=== PATIENT | male | born 1985 | race Caucasian/White ===

== ENCOUNTER 2022-01-04 22:35 | Emergency (ER) | payer SELFPAY ==
[2022-01-04 22:50] VITALS: BP 104/80; PULSE 58; RESP 16; TEMP 36.7; O2SAT 100
--- NOTE | 2022-01-05 00:13 | ED.GENADULT ---
HPI - General Adult General Chief complaint: Unspecified Stated complaint: food bolus Time Seen by Provider: 01/04/22 23:31 History of Present Illness HPI narrative: 36-year-old male here for evaluation of sensation fluid bolus for the past 5 hours. Patient states he was eating pot roast when he felt it get stuck in his throat. He has been unable to tolerate his secretions ever since and has been spitting them out. Does note that he has had a history of the sensation in the past, he has required an upper endoscopy. He has been told he has a narrow esophagus and may require dilatation. Denies difficulty breathing, chest pain, shortness of breath, vomiting. Related Data Home Medications Medication Instructions Recorded Confirmed No Home Medications 01/04/22 01/04/22 Allergies Allergy/AdvReac Type Severity Reaction Status Date / Time metaxalone [From Skelaxin] AdvReac Hallucinati Verified 01/04/22 22:55 ng Review of Systems Review of Systems: Gen: Denies fevers or chills Eyes: Denies eye pain or visual change ENT: Denies congestion Respiratory: Denies shortness of breath or cough CV: Denies chest pain or palpitations GI: Reports food bolus sensation. Denies abdominal pain nausea, emesis or diarrhea : denies burning, urgency, frequency or hematuria Musculoskeletal: Denies back pain or muscle pain Neuro: Denies numbness, tingling, weakness or focal weakness Skin: Denies rash Except as documented, all other systems reviewed and negative Exam Narrative: APPEARANCE: Well appearing, no pain in distress, well-nourished. Head: Normocephalic and atraumatic. EYES: PERRLA/EOMI, conjunctivae clear NOSE: No nasal drainage EARS: External ear normal in appearance THROAT: Actively spitting out secretions. Oropharynx is clear. Mucous membranes are moist. NECK: Supple. No adenopathy, no masses. RESPIRATORY: Airway patent, respirations nonlabored. Clear to auscultation bilaterally, no rales, rhonchi, wheezing. CARDIOVASCULAR: Regular rate and rhythm without murmurs, rubs, or gallops. ABDOMINAL: Normoactive bowel sounds. Soft, nontender, nondistended. No rebound tenderness or guarding. MUSCULOSKELETAL: Extremities are warm and well-perfused. Moves all extremities well. No edema. NEURO: Normal speech. No focal neurologic deficits. SKIN: Skin is warm and dry. No rashes. PSYCHIATRIC: Normal affect/mood. Course Vital Signs Vital signs: Vital Signs Temperature 98.1 F 01/04/22 22:50 Pulse Rate 58 L 01/04/22 22:50 Respiratory Rate 16 01/04/22 22:50 Blood Pressure 104/80 01/04/22 22:50 Pulse Oximetry 100 01/04/22 22:50 Oxygen Delivery Room Air 01/04/22 22:50 Temperature 98.1 F 01/04/22 22:50 Pulse Rate 58 L 01/04/22 22:50 Respiratory Rate 16 01/04/22 22:50 Blood Pressure 104/80 01/04/22 22:50 Pulse Oximetry 100 01/04/22 22:50 Oxygen Delivery Room Air 01/04/22 22:50 Medical Decision Making MDM Narrative Medical decision making narrative: 36-year-old male here for evaluation of food bolus sensation over the past 4 hours after eating pot roast. He is actively spitting out his secretions, but he has no signs of respiratory distress. Patient was given sprite with resolution of his symptoms and sensation of the food bolus passing. He has been told that he requires an esophageal dilatation in the past, he does not have a GI doctor, so we will provide him with follow-up. Discussed return precautions with patient and he voiced understanding. Vital Signs Vital Signs: Vital Signs Temperature 98.1 F 01/04/22 22:50 Pulse Rate 58 L 01/04/22 22:50 Respiratory Rate 16 01/04/22 22:50 Blood Pressure 104/80 01/04/22 22:50 Pulse Oximetry 100 01/04/22 22:50 Oxygen Delivery Room Air 01/04/22 22:50 Temperature 98.1 F 01/04/22 22:50 Pulse Rate 58 L 01/04/22 22:50 Respiratory Rate 16 01/04/22 22:50 Blood Pressure 104/80 01/04/22 22:50 Pulse Oximetry 100 07
== END 2022-01-05 00:34 | disposition home or self-care (01) ==
PROVIDERS: Emergency Provider Emergency Medicine
DX: T18.128A Food in esophagus causing other injury, initial encounter (principal)
CPT/HCPCS: 99281

== ENCOUNTER 2023-07-26 18:43 | Emergency (ER) | payer OTHER, SELFPAY ==
[2023-07-26 18:55] VITALS: BP 119/68; PULSE 96; RESP 18; TEMP 36.8; O2SAT 96
--- NOTE | 2023-07-26 19:23 | ED.URI ---
HPI - URI/Sore Throat General Chief Complaint: Upper Respiratory Infection Stated Complaint: cough,throat pain Time Seen by Provider: 07/26/23 19:04 Source: patient and RN notes reviewed Mode of arrival: ambulatory Limitations: no limitations History of Present Illness HPI Narrative: Patient presents today complaining a 2 day history productive cough, sore throat, congestion, rhinorrhea. Symptoms worse since yesterday. Denies fever, shortness of breath. Currently rates his pain 6/10 and has been taking Tylenol with some relief. Related Data Allergies Allergy/AdvReac Type Severity Reaction Status Date / Time metaxalone [From Skelaxin] AdvReac Hallucinati Verified 07/26/23 19:12 ng Review of Systems Review of Systems: CONSTITUTIONAL: Denies body aches, fever, chills, or sweats. EYES: Denies visual changes, redness, or discharge. ENT: Denies otalgia. + congestion, rhinorrhea, sore throat CARDIOVASCULAR: Denies chest pain, palpitations, or edema. RESPIRATORY: Denies dyspnea.+ cough GASTROINTESTINAL: Denies abdominal pain, nausea, vomiting, or diarrhea. GENITOURINARY: Denies dysuria or hematuria. SKIN: Denies rash, itching, or wounds. MUSCULOSKELETAL: Denies back pain, joint pain, or myalgia. NEUROLOGIC: Denies headache, numbness, tingling, or weakness. PSYCH: Denies depression or anxiety. COUNTS INCLUDE 234 BEDS AT [facility] Surgical History Surgical History (Updated 07/26/23 @ 19:27 by Lisa Cota, [facility], ) Hx of tonsillectomy Comments At time of signature, I have reviewed and agree with nursing past medical, surgical, social and family history unless otherwise noted. Please see nursing chart for further information. There is no relevant family history pertinent to the presenting complaint Exam Narrative: GENERAL: Well-appearing, well-nourished, and in no acute distress. HEAD: Normocephalic, atraumatic. EYES: EOMI. No redness or drainage. Conjunctivae normal. ENT: Mucous membranes pink and moist. Nares congested. TMs normal bilaterally. Throat mildly erythematous without edema or exudate. Tonsils absent.. Uvula midline. NECK: Normal AROM. Supple. Bilateral anterior cervical chain lymphadenopathy CHEST: No respiratory distress. Clear to auscultation. HEART: Regular rate and rhythm. No murmur appreciated. EXTREMITIES: Normal range of motion. No edema. SKIN: Warm, dry, no rash. Capillary refill normal. Normal skin turgor. NEURO: No focal deficits. Alert and oriented x3. Gait steady. PSYCH: Normal affect. No signs of depression or anxiety. Course Course Level of Care: Express Care Visit Vital Signs Vital signs: Vital Signs Temperature 98.2 F 07/26/23 18:55 Pulse Rate 96 07/26/23 18:55 Respiratory Rate 18 07/26/23 18:55 Blood Pressure 119/68 07/26/23 18:55 Pulse Oximetry 96 07/26/23 18:55 Oxygen Delivery Room Air 07/26/23 18:55 Temperature 98.2 F 07/26/23 18:55 Pulse Rate 96 07/26/23 18:55 Respiratory Rate 18 07/26/23 18:55 Blood Pressure 119/68 07/26/23 18:55 Pulse Oximetry 96 07/26/23 18:55 Oxygen Delivery Room Air 07/26/23 18:55 Reviewed MDM - URI/Sore Throat MDM Narrative Medical decision making narrative: Rapid strep positive. Prescription for amoxicillin sent to pharmacy. Anticipatory guidance given. Differential Diagnosis Differential diagnosis: Likely upper respiratory infection, otitis media, viral infection, influenza, pharyngitis and other (Strep throat, COVID-19) Lab Data Attestation: I reviewed the patient's lab results. Lab results narrative: Rapid strep positive. COVID and influenza negative Critical Care Time Critical Care Time Critical Care Time: No Discharge Plan Discharge Clinical Impression: Strep throat Patient Disposition: Home, Self-Care Condition: Stable Instructions: Strep Throat (DC) Additional Instructions: You have been diagnosed with strep throat. Please take the amoxicillin as prescribed until gone. Y
== END 2023-07-26 19:35 | disposition home or self-care (01) ==
PROVIDERS: Emergency Provider Nurse Practitioner
DX: J02.0 Streptococcal pharyngitis (principal); Z20.822 Contact with and (suspected) exposure to COVID-19
CPT/HCPCS: 87426; 87804; 87880; 99213; G0463

== ENCOUNTER 2025-02-02 21:52 | Outpatient (CLI) | payer SELFPAY ==
[2025-02-02 21:56] VITALS: BP 116/80; PULSE 93; RESP 20; TEMP 36.2; O2SAT 97
[2025-02-02] MEDS: GLUCAGON FOR INJ 1 MG VIAL 2 MG IV PUSH (22:19)
[2025-02-03] VITALS (9 sets, daily range): BP systolic 118–150; BP diastolic 63–108; PULSE 89–111; RESP 12–26; TEMP 36.4; O2SAT 97–100
[2025-02-03] MEDS: LACTATED RINGERS 1,000 ML 150 ML IV CONT (01:10)
[2025-02-03] MEDS: MORPHINE SULFATE (*CRX) 4 MG/ML INJ IV PUSH (02:58)
[2025-02-03] MEDS: ONDANSETRON INJ 4 MG/2 ML VIAL IV PUSH (02:58)
[2025-02-03] MEDS: SODIUM CHLORIDE 0.9% IV 1,000 ML 999 ML IV CONT ×2 (02:59→03:57)
[2025-02-03] MEDS: PIPERACILLIN/TAZOBACTAM SOD 4.5 GM in SODIUM CHLORIDE 0.9% IV 100 ML 200 ML IVPB (03:09)
[2025-02-03 03:13] LABS: Hematocrit 50.3 % (42.0-52.0); Hemoglobin 16.6 g/dL (14.0-18.0); Immature Granulocyte Percent A 0.4 % (0-0.5); Lymphocytes Absolute Auto 1.02 K/mm3 (0.9-3.2); Mean Corpuscular HGB Conc 33.0 g/dl (32-36); Mean Corpuscular Hemoglobin 30.2 pg (26-34); Mean Corpuscular Volume 91.5 fl (80-100); Nucleated Red Blood Cells Absolute Auto 0.000 K/mm3 (0.0-0.012); Nucleated Red Blood Cells Perc 0.0 % (0.0-0.2); Platelet Count Result 290 k/mm3 (150-375); Red Blood Count 5.50 M/mm3 (4.6-6.20); White Blood Count 15.2 K/mm3 (4.5-10.0)
[2025-02-03 03:27] LABS: Alanine Aminotransferase 54 U/L (6-50); Albumin Level 4.4 g/dL (3.5-5.1); Alkaline Phosphatase 100 U/L (38-126); Anion Gap 8 mmol/L (4-12); Aspartate Amino Transferase 41 U/L (17-59); Bilirubin,Total 1.2 mg/dL (0.2-1.3); Blood Urea Nitrogen 10 mg/dL (9-20); Calcium 8.7 mg/dL (8.4-10.2); Carbon Dioxide 25 mmol/L (22-30); Chloride 103 mmol/L (98-107); Estimated CRCL calculation 107 ml/min; Estimated Glomerular Filt Rate > 60; Glucose 174 mg/dL (65-110); Lipase 83 U/L (23-300); Magnesium 2.0 mg/dL (1.6-2.3); Potassium 4.4 mmol/L (3.4-5.0); Sodium 136 mmol/L (137-145); Total Protein 7.3 g/dL (6.3-8.2)
[2025-02-03] MEDS: FLUCONAZOLE 400 MG/NACL 200 ML 400 MG/200 ML BAG 100 MG IVPB (03:57)
== END 2025-02-03 04:27 | disposition home or self-care (01) ==
LOC: ANHED 02-03 00:04 → ANHENDO 02-03 00:16 → ANHED 02-03 02:52
PROVIDERS: Internal Medicine Gastroenterology; Emergency Provider Emergency Medicine; Visit Provider Emergency Medicine
PROC: 0DJ08ZZ Inspection of Upper Intestinal Tract, Via Natural or Artificial Opening Endoscopic (ICD-10-PCS; principal; 2025-02-03 00:50)
DX: K22.2 Esophageal obstruction (principal); K22.3 Perforation of esophagus
CPT/HCPCS: 36415; 70490; 71250; 80053; 83605; 83690; 83735; 85025; 86850; 86900; 86901; 87040; 88305; J0330; J1100; J1450; J1610; J2250; J2270; J2405; J2543; J2704; J3010; J7030; J7120